=== PATIENT | female | born 1975 | race Caucasian/White ===

== ENCOUNTER 2020-08-07 13:34 | Emergency (ER) | payer OTHER ==
[~2020-08-07] VITALS: Ht 165.1 cm; Wt 83.9 kg
[2020-08-07] MEDS ORDERED: APAP W/CODEINE1 TA2 PO (15:46)
[2020-08-07] MEDS ORDERED: IBUPROFEN 600600 M1 PO (15:46)
[2020-08-07 16:01] VITALS: BP 120/80
== END 2020-08-07 16:01 | disposition home or self-care (01) ==
LOC: M.ERS 13:34
DX: M79.645 Pain in left finger(s) (principal); Z98.890 Other specified postprocedural states; X50.9XXA Other and unspecified overexertion or strenuous movements or postures, initial encounter; Y93.89 Activity, other specified; Y92.89 Other specified places as the place of occurrence of the external cause; Y99.8 Other external cause status

== ENCOUNTER 2020-08-22 13:56 | Emergency (ER) | payer OTHER ==
[~2020-08-22] VITALS: Ht 165.1 cm; Wt 83.9 kg
[~2020-08-22 13:56] MED LIST: APAP W/CODEINE1 TA2 PO; IBUPROFEN 600600 M1 PO
[2020-08-22] MEDS ORDERED: NAPROSYN500 M1 PO (15:02)
[2020-08-22] MEDS ORDERED: VOLTAREN GEL 1100 G2 TOP (15:02)
[2020-08-22 15:17] VITALS: BP 127/96
== END 2020-08-22 15:18 | disposition home or self-care (01) ==
LOC: M.ERS 13:56
DX: S50.01XA Contusion of right elbow, initial encounter (principal); S60.051A Contusion of right little finger without damage to nail, initial encounter; W22.8XXA Striking against or struck by other objects, initial encounter; Y93.89 Activity, other specified; Y92.89 Other specified places as the place of occurrence of the external cause; Y99.0 Civilian activity done for income or pay

== ENCOUNTER 2020-12-21 16:22 | Emergency (ER) | payer MEDICAID ==
[~2020-12-21] VITALS: Ht 167.6 cm; Wt 83.9 kg
[~2020-12-21 16:22] MED LIST changes: +NAPROSYN500 M1 PO; +VOLTAREN GEL 1100 G2 TOP
[2020-12-21 16:45] LABS: URINE BILIRUBIN NEGATIVE (Negative); URINE BLOOD NEGATIVE (Negative); URINE CLARITY CLEAR; URINE COLOR YELLOW; URINE GLUCOSE-RANDOM NEGATIVE (Negative); URINE KETONES NEGATIVE (Negative); URINE LEUKOCYTES-REFLEX NEGATIVE (Negative); URINE NITRITE-REFLEX NEGATIVE (Negative); URINE PROTEIN NEGATIVE (Negative); URINE SPECIFIC GRAVITY 1.025 (1.005-1.030)
[2020-12-21 17:59] LABS: ABSOLUTE BASOPHILS 0.1 thou/uL (0.0-0.2); ABSOLUTE EOSINOPHILS 0.1 thou/uL (0.0-0.7); ABSOLUTE MONOCYTES 0.4 thou/uL (0.0-1.2); ABSOLUTE NEUTROPHILS 7.2 thou/uL (1.6-8.1); BASOPHILS 0.9 %; EOSINOPHILS 1.4 %; HEMATOCRIT 40.7 % (37.0-47.0); HEMOGLOBIN 14.4 gm/dL (12.0-15.0); LYMPHOCYTES 20.1 %; MCH 32.1 pg (26.0-34.0); MCHC 35.4 g/dL (28.0-37.0); MCV 90.7 fL (80.0-100.0); MONOCYTES 4.5 %; NUCLEATED RBCS 0 /100WBC; PLATELET COUNT* 248 thou/uL (150-400); POLYS 73.1 %; RBC 4.49 mil/uL (4.20-5.00); RDW-CV 12.5 % (10.5-14.5); WBC 9.8 thou/uL (4.0-11.0)
[2020-12-21 18:10] LABS: CALCIUM 8.3 mg/dL (8.5-10.1); CREATININE 1.1 mg/dL (0.6-1.3); POTASSIUM 3.9 mmol/L (3.5-5.1)
[2020-12-21 18:15] LABS: ALBUMIN 3.3 g/dL (3.4-5.0); TOTAL BILIRUBIN 0.3 mg/dL (<0.1-1.0); TOTAL PROTEIN 7.3 g/dL (6.4-8.2)
[2020-12-21] MEDS ORDERED: FLEXERIL PO (18:31)
[2020-12-21] MEDS ORDERED: PERCOCET PO (18:36)
[2020-12-21 18:42] VITALS: BP 115/64
== END 2020-12-21 18:43 | disposition home or self-care (01) ==
LOC: M.ERS 16:22
PROVIDERS: Physician Assistant
DX: N83.202 Unspecified ovarian cyst, left side (principal)

== ENCOUNTER 2021-01-31 18:35 | Emergency (ER) | payer MEDICAID ==
[~2021-01-31] VITALS: Ht 165.1 cm; Wt 83.9 kg
[~2021-01-31 18:35] MED LIST changes: +FLEXERIL PO; +PERCOCET PO
[2021-01-31 19:12] LABS: URINE BILIRUBIN NEGATIVE (Negative); URINE BLOOD NEGATIVE (Negative); URINE CLARITY CLEAR; URINE COLOR YELLOW; URINE GLUCOSE-RANDOM NEGATIVE (Negative); URINE KETONES NEGATIVE (Negative); URINE LEUKOCYTES-REFLEX NEGATIVE (Negative); URINE NITRITE-REFLEX NEGATIVE (Negative); URINE PROTEIN NEGATIVE (Negative); URINE UROBILINOGEN 0.2 E.U./dl (0.2-1.0)
[2021-01-31 19:42] LABS: ABSOLUTE BASOPHILS 0.1 thou/uL (0.0-0.2); ABSOLUTE EOSINOPHILS 0.2 thou/uL (0.0-0.7); ABSOLUTE LYMPHOCYTES 2.2 thou/uL (0.8-5.3); ABSOLUTE MONOCYTES 0.6 thou/uL (0.0-1.2); ABSOLUTE NEUTROPHILS 7.2 thou/uL (1.6-8.1); BASOPHILS 0.6 %; EOSINOPHILS 1.8 %; HEMATOCRIT 43.8 % (37.0-47.0); HEMOGLOBIN 14.7 gm/dL (12.0-15.0); LYMPHOCYTES 21.2 %; MCH 30.6 pg (26.0-34.0); MCHC 33.5 g/dL (28.0-37.0); MCV 91.3 fL (80.0-100.0); MONOCYTES 5.9 %; MPV 7.9 fl. (7.2-11.1); NUCLEATED RBCS 0 /100WBC; PLATELET COUNT* 218 thou/uL (150-400); POLYS 70.5 %; RDW-CV 12.4 % (10.5-14.5); WBC 10.2 thou/uL (4.0-11.0)
[2021-01-31 19:55] LABS: CALCIUM 9.4 mg/dL (8.5-10.1); CREATININE 0.9 mg/dL (0.6-1.3); POTASSIUM 3.9 mmol/L (3.5-5.1)
[2021-01-31 20:00] LABS: ALBUMIN 4.3 g/dL (3.4-5.0); TOTAL BILIRUBIN 0.3 mg/dL (<0.1-1.0); TOTAL PROTEIN 7.5 g/dL (6.4-8.2)
[2021-01-31] MEDS ORDERED: ZOFRAN ODT4 MG PO (21:50)
[2021-01-31] MEDS ORDERED: HYDROCODON-ACE1 EAC7 PO (21:51)
[2021-01-31 22:10] VITALS: BP 155/79
== END 2021-01-31 22:10 | disposition home or self-care (01) ==
LOC: M.ERS 18:35
PROVIDERS: Nurse Practitioner Psychiatric/Mental Health
DX: R10.11 Right upper quadrant pain (principal); R10.12 Left upper quadrant pain; R06.02 Shortness of breath